=== PATIENT | male | born 1980 | race Asian ===

== ENCOUNTER 2019-06-11 21:00 | Emergency (ER) | payer MEDICAID ==
[~2019-06-11] VITALS: Ht 167.6 cm; Wt 60.8 kg
[2019-06-11 21:05] VITALS: Ht 167.6 cm; Wt 60.8 kg
[2019-06-11 21:40] LABS: BASOPHIL % 1.1 % (0-2); PLATELET COUNT 333 x10^3mcL (130-400)
[2019-06-11 21:46] LABS: RED CELL DISTRIBUTION WIDTH 14.6 % (11.5-14.5)
[2019-06-11 21:49] LABS: CALCIUM 9.1 mg/dL (8.5-10.1); CARBON DIOXIDE 32.8 mmol/L (21-32); CHLORIDE SERUM 107 mmol/L (98-107); CREATININE SERUM 1.2 mg/dL (0.7-1.3); GFR1 > 60 mL/min; GLUCOSE SERUM 105 mg/dL (74-106); POTASSIUM SERUM 4.5 mmol/L (3.5-5.1); SODIUM SERUM 145 mmol/L (136-145)
[2019-06-11 21:53] LABS: ALBUMIN 3.7 g/dL (3.4-5.0); ALKALINE PHOSPHATASE 60 U/L (46-116); ALT/SGPT 32 U/L (16-63); BILIRUBIN TOTAL 0.4 mg/dL (0.20-1.00); TOTAL PROTEIN, SERUM 6.9 g/dL (6.4-8.2)
[2019-06-11 22:59] LABS: AST/SGOT 30 U/L (15-37)
[2019-06-12 00:39] VITALS: BP 134/90
== END 2019-06-12 00:39 | disposition home or self-care (01) ==
LOC: ED 21:00
PROVIDERS: Emergency Medicine
DX: R51 Headache (principal); R11.10 Vomiting, unspecified; H53.149 Visual discomfort, unspecified
CPT/HCPCS: J2270; J2405